=== PATIENT | male | born 2000 | race Two or more races ===

== ENCOUNTER 2022-06-07 21:27 | Emergency (ER) | payer OTHER ==
[~2022-06-07] VITALS: Ht 188 cm; Wt 65.8 kg
[2022-06-07 21:58] VITALS: BP 119/72
[2022-06-07] MEDS ORDERED: HYDROCODONE/APAP 5/325MG TABLET PO ONE (22:30)
[2022-06-07] MEDS ORDERED: IBUPROFEN 600 MG TABLET PO ONE (22:30)
[2022-06-07] MEDS ORDERED: HYDROCODONE/APAP 5/325MG TABLET ONE (22:38)
[2022-06-07] MEDS ORDERED: IBUPROFEN 600 MG TABLET ONE (22:38)
[2022-06-07] MEDS ORDERED: HYDR-4209 PO (22:45)
--- NOTE | 2022-06-07 23:37 | NUR ---
Patient discharged to home in stable condition. Written and verbal after care instructions given. Patient verbalizes understanding of instruction. Pt ambulatory with aide of cruthches.
== END 2022-06-07 23:37 | disposition home or self-care (01) ==
LOC: ER 21:29
DX: M22.02 Recurrent dislocation of patella, left knee (principal); S83.412A Sprain of medial collateral ligament of left knee, initial encounter; X58.XXXA Exposure to other specified factors, initial encounter; Y93.75 Activity, martial arts; Y92.89 Other specified places as the place of occurrence of the external cause; Y99.8 Other external cause status
CPT/HCPCS: 73564-TC